=== PATIENT | female | born 1970 | race African-American/Black ===

== ENCOUNTER 2019-02-25 18:48 | Emergency (ER) | payer OTHER ==
[~2019-02-25] VITALS: Ht 167.6 cm; Wt 156.0 kg
[~2019-02-25 18:48] MED LIST: GLUCOPHAGE500 MG; PRINZIDE 20-251 EACH
[2019-02-25] MEDS ORDERED: LEVEMIR100 UNIT/1 (19:13)
[2019-02-25 20:30] VITALS: BP 145/90
== END 2019-02-25 20:31 | disposition home or self-care (01) ==
LOC: ER 18:48
DX: S80.02XA Contusion of left knee, initial encounter (principal); E28.2 Polycystic ovarian syndrome; Z88.0 Allergy status to penicillin; W01.0XXA Fall on same level from slipping, tripping and stumbling without subsequent striking against object, initial encounter; Y92.89 Other specified places as the place of occurrence of the external cause; Y93.89 Activity, other specified; Y99.8 Other external cause status